=== PATIENT | female | born 2000 | race Caucasian/White ===

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

== ENCOUNTER → 2021-04-19 | Outpatient (CLI) | payer OTHER ==
--- NOTE | 2021-04-20 08:25 | USB ---
Reason for exam: clinical finding. History: Benign US breast aspiration single LT of the left breast, July 02, 2019. Took hormonal contraceptives for 3 years. Indicated problem(s): palpable abnormality in the left breast. Physical Findings: Nurse Summary: 0.25cm movable nodule 11-12 o'clock at scar, multiple areas (nurse dw). US Breast LT Technologist: Rosenda Jackson Left complete breast ultrasound includes all four quadrants, the retroareolar region and axilla. Finding demonstrates a 0.4 x 0.3 x 0.3cm cystic, benign lesion at 12 o'clock, a 0.4 x 0.4 x 0.3cm cystic lesion at 1 o'clock, a 0.4 x 0.4 x 0.3cm cystic lesion at 11 o'clock, corresponds to the palpable, benign and a 0.7 x 0.6 x 0.4cm cystic lesion at 11 o'clock, just deep to the skin surface suggesting sebaceous cyst or epidermal inclusion cysts. These results were verbally communicated with the patient and result sheet given to the patient on 04/19/21. ASSESSMENT: Benign, BI-RAD 2 RECOMMENDATION: Routine screening mammogram of both breasts at age 40. (unless clinical indication to start sooner) Manage on a clinical basis with regard to breast pain.
== END | disposition home or self-care (01) ==
LOC: RADUSWWP 15:01
PROVIDERS: ATTEND Family Medicine
DX: N63.20 Unspecified lump in the left breast, unspecified quadrant (principal)

== ENCOUNTER 2021-08-14 16:58 | Emergency (ER) | payer OTHER ==
[2021-08-14] MEDS ORDERED: SODIUM CHLORIDE 0.9% 2,000 ML IV STA (20:53)
[2021-08-14] MEDS ORDERED: ONDANSETRON 4 MG/2 ML VIAL IVP STA (20:53)
[2021-08-14] MEDS ORDERED: DIPHENOX-ATROP 2.5-0.025 MG 1 EACH TAB PO STA (20:53)
[2021-08-14 21:29] LABS: Basophils % (A) 0 %; Eosinophils # (A) 0.1 k/uL (0-0.7); Eosinophils % (A) 1 %; HCT 50.7 % (34.0-46.0); HGB 17.2 gm/dL (11.4-16.0); Lymphocytes # (A) 1.9 k/uL (1.0-4.8); Lymphocytes % (A) 11 %; MCH 28.7 pg (25.0-35.0); MCHC 33.9 g/dL (31.0-37.0); MCV 84.4 fL (80.0-100.0); Mean Platelet Volume 9.5; Monocytes # (A) 0.5 k/uL (0-1.0); Monocytes % (A) 3 %; Neutrophils # (A) 15.2 k/uL (1.3-7.7); Neutrophils % (A) 86 %; Platelet Count 378 k/uL (150-450); RDW 12.6 % (11.5-15.5); WBC 17.8 k/uL (4.0-11.0)
[2021-08-14 21:44] LABS: ALT 26 U/L (4-34); AST 27 U/L (14-36); African American GFR (CKD) >90 (>60 ml/min/1.73 sqM); Albumin 5.3 g/dL (3.5-5.0); Alkaline Phosphatase 74 U/L (38-126); Anion Gap 15 mmol/L; Blood Urea Nitrogen 13 mg/dL (7-17); Calcium 10.6 mg/dL (8.4-10.2); Carbon Dioxide 18 mmol/L (22-30); Chloride 110 mmol/L (98-107); Glucose 110 mg/dL (74-99); Lipase 32 U/L (23-300); Non-African American GFR(CKD) >90 (>60 ml/min/1.73 sqM); Sodium 143 mmol/L (137-145); Total Bilirubin 0.7 mg/dL (0.2-1.3); Total Protein 9.1 g/dL (6.3-8.2)
[2021-08-14 22:10] LABS: Potassium 4.9 mmol/L (3.5-5.1)
[2021-08-14 22:33] LABS: Appearance,Urine Cloudy (Clear); Bacteria,Urine Moderate /hpf; Bilirubin,Urine 1+ (Negative); Blood,Urine Negative (Negative); Color,Urine Yellow; Glucose,Urine (UA) Negative (Negative); Hyaline Casts,Urine 2 /lpf (0-2); Ketones,Urine 4+ (Negative); Leukocyte Esterase,Urine Small (Negative); Mucus,Urine Many /hpf; Nitrite,Urine Negative (Negative); Protein,Urine 2+ (Negative); RBC,Urine 2 /hpf (0-5); Specific Gravity,Urine 1.037 (1.001-1.035); Squamous Epithelial Cell,Urine 4 /hpf (0-4); WBC,Urine 3 /hpf (0-5)
[2021-08-14] MEDS ORDERED: ONDANSETRON 4 MG ODT STARTER PACK 2 TAB BTL PO STA (23:58)
[2021-08-14] MEDS ORDERED: DIPHENOX-ATROP STARTER PACK 8 TAB BTL PO STA (23:58)
[2021-08-15] MEDS ORDERED: cefTRIAXone IN SWFI 1,000 MG/10 ML SYRINGE IVP ONE
--- NOTE | 2021-08-15 00:02 | ED ---
General Adult HPI - General Chief complaint: Nausea/Vomiting/Diarrhea Stated complaint: vomiting/hot and cold Source: patient Mode of arrival: ambulatory Limitations: no limitations - History of Present Illness Initial comments: 21-year-old female presents emergency Department with reported nausea, vomiting and diarrhea 1 day. Denies any sick contacts with similar symptoms. Denies eating any tainted foods. Patient denies current concern for as she is on the Depakote shot. No abnormal vaginal bleeding or discharge. No fevers. Admits to chills. Denies changes in her urination to include dysuria, hematuria or diplopia voiding. Bowel movements are watery and brown in color. No black or bloody stools. She has had numerous episodes of vomiting which have caused her to have chest wall and abdominal wall pain. Denies shortness of breath. No Covid exposure. No recent abdominal surgeries. 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 - Related Data Home Medications Medication Instructions Recorded Confirmed Prazosin HCl 1 mg PO HS 09/25/17 08/14/21 Albuterol Sulfate [Proair Hfa] 2 puff INHALATION RT-Q4H PRN 08/14/21 08/14/21 Medroxyprogesterone Acetate 150 mg IM Q84D 08/14/21 08/14/21 [Depo-Provera] QUEtiapine XR [SEROquel XR] 150 mg PO HS 08/14/21 08/14/21 Previous Rx's Medication Instructions Recorded Cephalexin [Keflex] 500 mg PO BID 1 Days #14 cap 08/15/21 Allergies Allergy/AdvReac Type Severity Reaction Status Date / Time No Known Allergies Allergy Verified 08/14/21 23:00 Review of Systems ROS Statement: Those systems with pertinent positive or pertinent negative responses have been documented in the HPI. ROS Other: All systems not noted in ROS Statement are negative. Past Medical History Past Medical History: No Reported History Additional Past Medical History / Comment(s): " Anger issues" History of Any Multi-Drug Resistant Organisms: None Reported Additional Past Surgical History / Comment(s): oral surgery Past Anesthesia/Blood Transfusion Reactions: No Reported Reaction Past Psychological History: Anxiety, Depression, PTSD Smoking Status: Current some day smoker, Vaper Past Alcohol Use History: None Reported Past Drug Use History: Marijuana General Exam Limitations: no limitations Course Vital Signs 08/14/21 08/14/21 17:46 20:50 Temperature 97.9 F 98.9 F Pulse Rate 75 89 Respiratory 22 18 Rate Blood Pressure 136/90 132/87 O2 Sat by Pulse 99 99 Oximetry Medical Decision Making - Medical Decision Making Upon arrival patient is placed into room 18. Thorough history and physical exam was performed. IV was established. Patient given a dose of Lomotil and Zofran. Laboratory studies are conducted which demonstrated a leukocytosis of 17.8. UA demonstrates 4+ ketones, moderate bacteria. Patient given a dose of Rocephin. She is reevaluated reports to marked improvement in her symptoms. She is able tolerate by mouth intake at this time. Patient will be discharged home with starter packs for Lomotil and Zofran. Take the medications as directed. She needs follow-up with her primary care doctor in 2-4 days. If she has any new or worsening symptoms she needs to return to the emergency room. Patient agreed to treatment plan she was discharged home in stable condition - Lab Data Result diagrams: 08/14/21 21:10 08/14/21 21:10 Lab Results 08/14/21 08/14/21 08/14/21 Range/Units 21:10 21:10 21:10 WBC 17.8 H (4.0-11.0) k/uL RBC 6.00 H (3.80-5.40) m/uL Hgb 17.2 H (11.4-16.0) gm/dL Hct 50.7 H (34.0-46.0) % MCV 84.4 (80.0-100.0) fL MCH 28.7 (25.0-35.0) pg MCHC 33.9 (31.0-37.0) g/dL RDW 12.6 (11.5-15.5) % Plt Count 378 (150-450) k/uL MPV 9.5 Neutrophils % 86 % Lymphocytes % 11 % Monocytes % 3 % Eosinophils % 1 % Basophils % 0 % Neutrophils # 15.2 H (1.3-7.7) k/uL Lymphocytes # 1.9 (1.0-4.8) k/uL Monocytes # 0.5 (0-1.0) k/uL Eosinophils # 0.1 (0-0.7) k/uL Basophils # 0.0 (0-0.2) k/uL Sodium 143 (137-145) mmol/L Potassium 4.9 (3.5-5.1) mmol/L Chloride 110 H (98-107) mmol/L Carbon Dioxide 18 L (22-30) mmol/L Anion Gap 15 mmol/L BUN 13 (7-17) mg/dL Creatinine 0.63 (0.52-1.04) mg/dL Est GFR (CKD-EPI)AfAm >90 (>60 ml/min/1.73 sqM) Est GFR (CKD-EPI)NonAf >90 (>60 ml/min/1.73 sqM) Glucose 110 H (74-99) mg/dL Calcium 10.6 H (8.4-10.2) mg/dL Total Bilirubin 0.7 (0.2-1.3) mg/dL AST 27 (14-36) U/L ALT 26 (4-34) U/L Alkaline Phosphatase 74 (38-126) U/L Total Protein 9.1 H (6.3-8.2) g/dL Albumin 5.3 H (3.5-5.0) g/dL Lipase 32 (23-300) U/L Urine Color Yellow Urine Appearance Cloudy H (Clear) Urine pH 6.0 (5.0-8.0) Ur Specific [place] 1.037 H (1.001-1.035) Urine Protein 2+ H (Negative) Urine Glucose (UA) Negative (Negative) Urine Ketones 4+ H (Negative) Urine Blood Negative (Negative) Urine Nitrite Negative (Negative) Urine Bilirubin 1+ H (Negative) Urine Urobilinogen 3.0 (<2.0) mg/dL Ur Leukocyte Esterase Small H (Negative) Urine RBC 2 (0-5) /hpf Urine WBC 3 (0-5) /hpf Ur Squamous Epith Cells 4 (0-4) /hpf Urine Bacteria Moderate H (None) /hpf Hyaline Casts 2 (0-2) /lpf Urine Mucus Many H (None) /hpf Urine HCG, Qual (Not Detectd) 08/14/21 Range/Units 21:10 WBC (4.0-11.0) k/uL RBC (3.80-5.40) m/uL Hgb (11.4-16.0) gm/dL Hct (34.0-46.0) % MCV (80.0-100.0) fL MCH (25.0-35.0) pg MCHC (31.0-37.0) g/dL RDW (11.5-15.5) % Plt Count (150-450) k/uL MPV Neutrophils % % Lymphocytes % % Monocytes % % Eosinophils % % Basophils % % Neutrophils # (1.3-7.7) k/uL Lymphocytes # (1.0-4.8) k/uL Monocytes # (0-1.0) k/uL Eosinophils # (0-0.7) k/uL Basophils # (0-0.2) k/uL Sodium (137-145) mmol/L Potassium (3.5-5.1) mmol/L Chloride (98-107) mmol/L Carbon Dioxide (22-30) mmol/L Anion Gap mmol/L BUN (7-17) mg/dL Creatinine (0.52-1.04) mg/dL Est GFR (CKD-EPI)AfAm (>60 ml/min/1.73 sqM) Est GFR (CKD-EPI)NonAf (>60 ml/min/1.73 sqM) Glucose (74-99) mg/dL Calcium (8.4-10.2) mg/dL Total Bilirubin (0.2-1.3) mg/dL AST (14-36) U/L ALT (4-34) U/L Alkaline Phosphatase (38-126) U/L Total Protein (6.3-8.2) g/dL Albumin (3.5-5.0) g/dL Lipase (23-300) U/L Urine Color Urine Appearance (Clear) Urine pH (5.0-8.0) Ur Specific [place] (1.001-1.035) Urine Protein (Negative) Urine Glucose (UA) (Negative) Urine Ketones (Negative) Urine Blood (Negative) Urine Nitrite (Negative) Urine Bilirubin (Negative) Urine Urobilinogen (<2.0) mg/dL Ur Leukocyte Esterase (Negative) Urine RBC (0-5) /hpf Urine WBC (0-5) /hpf Ur Squamous Epith Cells (0-4) /hpf Urine Bacteria (None) /hpf Hyaline Casts (0-2) /lpf Urine Mucus (None) /hpf Urine HCG, Qual Not Detected (Not Detectd) Disposition Clinical Impression: UTI (urinary tract infection), Nausea and vomiting Disposition: HOME SELF-CARE Condition: Stable Instructions (If sedation given, give patient instructions): Acute Nausea and Vomiting (ED) Additional Instructions: Please take the Zofran and Lomotil as directed. Drink plenty of water. Return to the ED for any new or worsening symptoms. Prescriptions: Cephalexin [Keflex] 500 mg PO BID 1 Days #14 cap Is patient prescribed a controlled substance at d/c from ED?: No Referrals: Phyllis aLke MD [Primary Care Provider] - 1-2 days Time of Disposition: 00:01
[2021-08-15 00:42] VITALS: BP 132/87; PULSE 89; RESP 18; TEMP 98.9
== END 2021-08-15 00:45 | disposition home or self-care (01) ==
LOC: EC 16:58
DX: N39.0 Urinary tract infection, site not specified (principal); R11.2 Nausea with vomiting, unspecified; F43.10 Post-traumatic stress disorder, unspecified; F41.9 Anxiety disorder, unspecified; F32.A Depression, unspecified; F17.290 Nicotine dependence, other tobacco product, uncomplicated; F12.90 Cannabis use, unspecified, uncomplicated
CPT/HCPCS: 36415; 80053; 83690; 85025; 81001; 81025; 99284; 96374; 96375; J2405; J0696; S0119

== ENCOUNTER 2022-01-06 08:52 | Emergency (ER) | payer OTHER ==
[2022-01-06 09:14] VITALS: BP 121/77; PULSE 96; RESP 17; TEMP 97.9
--- NOTE | 2022-01-06 09:31 | ED ---
General Adult HPI - General Chief complaint: Skin/Abscess/Foreign Body Stated complaint: Right Leg Pain Time Seen by Provider: 01/06/22 09:15 Source: patient Mode of arrival: ambulatory Limitations: no limitations - History of Present Illness Initial comments: Dictation was produced using [employer] dictation software. please excuse any grammatical, word or spelling errors. Chief Complaint: 21-year-old female presents with right lower extremity infection History of Present Illness:-year-old female she has no significant comorbidities she noted a painful redness around her tattoo site. She recently got a tattoo approximately 2 weeks ago. She noted that there was no skin reaction where the tattoo was but anterior to it. Patient states been draining purulent fluid. She has been applying calamine lotion to it hasn't really been improving her symptoms. Denies any fever or constitutional symptoms. Patient is on oral contraceptive pills. She denies . The ROS documented in this emergency department record has been reviewed and confirmed by me. Those systems with pertinent positive or negative responses have been documented in the HPI. All other systems are other negative and/or noncontributory. PHYSICAL EXAM: General Impression: Alert and oriented x3, not in acute distress HEENT: Normocephalic atraumatic, extra-ocular movements intact, pupils equal and reactive to light bilaterally, mucous membranes moist. Cardiovascular: Heart regular rate and rhythm Chest: Able to complete full sentences, no retractions, no tachypnea Musculoskeletal: Pulses present and equal in all extremities, no peripheral edema Motor: no focal deficits noted Neurological: CN II-XII grossly intact, no focal motor or sensory deficits noted Right lower extremity: There does appear to be fresh tattoo over the lateral aspect of the distal right lower extremity. At his appear to be clean dry and intact. Anterior to the lower part of her tattoo there is a area of induration. Ultrasound was used and saw a soft tissue abscess that was small in size. Skin: Intact with no visualized rashes Psych: Normal affect and mood ED course: Patient is a 21-year-old female presents to the emergency department for soft tissue abscess of the right lower extremity just anterior to were her recent tattoo was placed. Patient has an identifiable abscess. Patient reports that her abscesses been draining. She recommended the patient to have at least needle aspiration to the site however she refuses and would prefer to just be on oral antibiotics to see if her symptoms resolve. Vital signs are within acceptable limits. Urine hCG is negative. Patient be discharged with prescription for Keflex and Bactrim. Advised to follow-up with primary care doctor. She is told that she would likely benefit from a incision and drainage of the area. - Related Data Home Medications Medication Instructions Recorded Confirmed Prazosin HCl 1 mg PO HS 09/25/17 08/14/21 Albuterol Sulfate [Proair Hfa] 2 puff INHALATION RT-Q4H PRN 08/14/21 08/14/21 Medroxyprogesterone Acetate 150 mg IM Q84D 08/14/21 08/14/21 [Depo-Provera] QUEtiapine XR [SEROquel XR] 150 mg PO HS 08/14/21 08/14/21 Previous Rx's Medication Instructions Recorded Cephalexin [Keflex] 500 mg PO BID 1 Days #14 cap 08/15/21 Cephalexin [Keflex] 500 mg PO Q6HR 5 Days #20 cap 01/06/22 Sulfamethox-Tmp 800-160Mg [Bactrim 1 tab PO Q12HR 5 Days #10 tab 01/06/22 DS 800-160 mg] Allergies Allergy/AdvReac Type Severity Reaction Status Date / Time No Known Allergies Allergy Verified 01/06/22 09:14 Review of Systems ROS Statement: Those systems with pertinent positive or pertinent negative responses have been documented in the HPI. ROS Other: All systems not noted in ROS Statement are negative. Past Medical History Past Medical History: No Reported History Additional Past Medical History / Comment(s): " Anger issues" History of Any Multi-Drug Resistant Organisms: None Reported Additional Past Surgical History / Comment(s): oral surgery Past Anesthesia/Blood Transfusion Reactions: No Reported Reaction Past Psychological History: Anxiety, Depression, PTSD Smoking Status: Current some day smoker, Vaper Past Alcohol Use History: None Reported Past Drug Use History: Marijuana General Exam Limitations: no limitations Course Vital Signs 01/06/22 09:11 Temperature 97.9 F Pulse Rate 96 Respiratory 17 Rate Blood Pressure 121/77 O2 Sat by Pulse 98 Oximetry Medical Decision Making - Lab Data Lab Results 01/06/22 Range/Units 09:50 Urine HCG, Qual Not Detected (Not Detectd) Disposition Clinical Impression: Soft tissue abscess Disposition: HOME SELF-CARE Instructions (If sedation given, give patient instructions): Abscess (ED) Prescriptions: Sulfamethox-Tmp 800-160Mg [Bactrim DS 800-160 mg] 1 tab PO Q12HR 5 Days #10 tab Cephalexin [Keflex] 500 mg PO Q6HR 5 Days #20 cap Is patient prescribed a controlled substance at d/c from ED?: No Referrals: Phyllis Lake MD [Primary Care Provider] - 1-2 days
== END 2022-01-06 10:21 | disposition home or self-care (01) ==
LOC: EC 08:52
DX: L02.415 Cutaneous abscess of right lower limb (principal); F41.9 Anxiety disorder, unspecified; F32.A Depression, unspecified; F43.10 Post-traumatic stress disorder, unspecified; F17.290 Nicotine dependence, other tobacco product, uncomplicated; F12.90 Cannabis use, unspecified, uncomplicated
CPT/HCPCS: 81025; 99283

== ENCOUNTER 2022-01-12 09:48 | Emergency (ER) | payer OTHER ==
[2022-01-12 09:58] VITALS: RESP 18; TEMP 98.4
[2022-01-12] MEDS ORDERED: SODIUM CHLORIDE 0.9% 1,000 ML IV ONE (10:36)
[2022-01-12] MEDS ORDERED: methylPREDNISolone SOD SUCCI 125 MG/2 ML VIAL IV STA (10:37)
[2022-01-12] MEDS ORDERED: LIDOCAINE 1% INJ 10MG/ML (5 ML VIAL-PF) SQ ONE (10:37)
[2022-01-12] MEDS ORDERED: diphenhydrAMINE 50 MG/ML 1 ML VIAL IVP STA (10:37)
--- NOTE | 2022-01-12 12:39 | ED ---
Allergic Reaction HPI - General Chief complaint: Allergic Reaction Stated complaint: Allergic Reaction/Rash Time Seen by Provider: 01/12/22 10:06 Source: patient Mode of arrival: ambulatory Limitations: no limitations - History of Present Illness Initial Comments: -year-old female with no past medical history presents emergency department for possible ALLERGIC reaction. She was seen on the where she had an abscess to her right calf. She is placed on Bactrim and Keflex and she has been taking it as directed. She refused incision and drainage of abscess at that time. She reports that she began having some drainage from the area which then scabbed over and stopped. Her last antibiotics was yesterday. She took her last dose she began having diffuse urticaria. Has not been taking any Benadryl for her symptoms yet. Denies any previous ALLERGIC reactions. Denies any new body products, shampoos, laundry detergent or foods. Denies any oral swelling, chest pain or shortness of breath. No concern for . 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, precipitating modifying factors - Related Data Home Medications Medication Instructions Recorded Confirmed Prazosin HCl 1 mg PO HS 09/25/17 01/12/22 Albuterol Sulfate [Proair Hfa] 2 puff INHALATION RT-Q4H PRN 08/14/21 01/12/22 QUEtiapine XR [SEROquel XR] 150 mg PO HS 08/14/21 01/12/22 Estarylla 1 tab PO HS 01/12/22 01/12/22 Previous Rx's Medication Instructions Recorded Ibuprofen [Motrin] 600 mg PO Q6HR PRN #10 tab 01/12/22 diphenhydrAMINE [Benadryl] 25 mg PO QID #28 capsule 01/12/22 predniSONE [Deltasone] 20 mg PO BID #10 tab 01/12/22 Allergies Allergy/AdvReac Type Severity Reaction Status Date / Time cephalexin [From Keflex] AdvReac Rash/Hives Verified 01/12/22 11:37 Review of Systems ROS Statement: Those systems with pertinent positive or pertinent negative responses have been documented in the HPI. ROS Other: All systems not noted in ROS Statement are negative. Past Medical History Past Medical History: No Reported History Additional Past Medical History / Comment(s): " Anger issues" History of Any Multi-Drug Resistant Organisms: None Reported Additional Past Surgical History / Comment(s): oral surgery Past Anesthesia/Blood Transfusion Reactions: No Reported Reaction Past Psychological History: Anxiety, Depression, PTSD Smoking Status: Current some day smoker Past Alcohol Use History: None Reported Past Drug Use History: Marijuana General Exam Limitations: no limitations General appearance: alert, in no apparent distress Head exam: Present: atraumatic, normocephalic, normal inspection Eye exam: Present: normal appearance, PERRL, EOMI. Absent: scleral icterus, conjunctival injection, periorbital swelling ENT exam: Present: normal exam, mucous membranes moist Neck exam: Present: normal inspection. Absent: tenderness, meningismus, lymphadenopathy Respiratory exam: Present: wheezes (left base). Absent: respiratory distress, rales, rhonchi, stridor Cardiovascular Exam: Present: normal rhythm, tachycardia, normal heart sounds. Absent: systolic murmur, diastolic murmur, rubs, gallop, clicks GI/Abdominal exam: Present: soft, normal bowel sounds. Absent: distended, tenderness, guarding, rebound, rigid Extremities exam: Present: normal inspection, full ROM, normal capillary refill. Absent: tenderness, pedal edema, joint swelling, calf tenderness Back exam: Present: normal inspection Neurological exam: Present: alert, oriented X3, CN II-XII intact Psychiatric exam: Present: normal affect, normal mood Skin exam: Present: warm, dry, intact, urticaria (chest, face, neck, bilateral arms, bilateral legs, back). Absent: rash Course Vital Signs 01/12/22 01/12/22 01/12/22 09:54 10:25 13:35 Temperature 98.4 F Pulse Rate 118 H 112 H 84 Respiratory 18 18 18 Rate Blood Pressure 119/64 143/81 173/72 O2 Sat by Pulse 98 98 98 Oximetry Procedures - Incision & Drainage Consent Obtained: verbal consent Indication: abscess Site: lower extremity Size (cm): 4 Anesthetic Used: lidocaine 1% Amount (mLs): 5 I&D Cleaning Method: Chloroprep Sterile Field Used?: Yes Scalpel Used: #11 Needle Aspiration Performed?: No Irrigation Performed?: No I&D Drainage Obtained: Pus Culture Obtained?: Yes Complications: bleeding Patient Tolerated Procedure: well, no complications Medical Decision Making - Medical Decision Making Upon arrival patient is placed into room 3. A thorough history and physical exam was performed. IV access is established. Patient is given 50 mg of Benadryl, 125 of Solu-Medrol and a liter bolus of normal saline. I did perform incision and drainage the patient's right calf abscess. Wound cultures are obtained. Patient does have improvement in her urticaria at this time. I did keep her incision and drainage site clean and dry. Is going to be placed on prednisone and Benadryl for the next 5 days. Take as directed. If she has persistent rash she needs to follow-up for possible ALLERGY testing. Return for any shortness of breath. Patient agreed that she was discharged home in stable condition Disposition Clinical Impression: Soft tissue abscess, Allergic reaction Disposition: HOME SELF-CARE Condition: Stable Instructions (If sedation given, give patient instructions): Abscess Incision and Drainage (ED), General Allergic Reaction (ED) Additional Instructions: Please take the steroids and Benadryl as directed. Return to the emergency room for any new or worsening symptoms. You may need further ALLERGY testing if your rash persists. Keep the area of your abscess clean and dry. Do not submerge the area in water Prescriptions: diphenhydrAMINE [Benadryl] 25 mg PO QID #28 capsule predniSONE [Deltasone] 20 mg PO BID #10 tab Ibuprofen [Motrin] 600 mg PO Q6HR PRN #10 tab PRN Reason: Pain Is patient prescribed a controlled substance at d/c from ED?: No Referrals: Phyllis Lake MD [Primary Care Provider] - 1-2 days Erika Medina MD [STAFF PHYSICIAN] - 1-2 days Time of Disposition: 12:40
[2022-01-12 13:52] VITALS: BP 173/72; PULSE 84
== END 2022-01-12 13:35 | disposition home or self-care (01) ==
LOC: EC 09:48
DX: L02.415 Cutaneous abscess of right lower limb (principal); L50.0 Allergic urticaria; T78.49XA Other allergy, initial encounter; F41.9 Anxiety disorder, unspecified; F32.A Depression, unspecified; F43.10 Post-traumatic stress disorder, unspecified; F12.90 Cannabis use, unspecified, uncomplicated; F17.200 Nicotine dependence, unspecified, uncomplicated; Z88.1 Allergy status to other antibiotic agents
CPT/HCPCS: 99282; 96374; 96375; 96361; 10060; J1200; J2930; J2001

== ENCOUNTER → 2024-02-28 | Outpatient (CLI) | payer OTHER ==
--- NOTE | 2024-02-28 16:28 | US ---
EXAMINATION TYPE: US abdomen limited DATE OF EXAM: 02/28/2024 COMPARISON: NONE CLINICAL INDICATION: Female, 23 years old with history of R10.33 PERIUMBILICAL PAIN; Assess for hernia at location of: umbilicus TECHNIQUE: Multiple grayscale and color Doppler ultrasound images of the umbilical region in the area of concern were obtained. Valsalva maneuver was performed. FINDINGS/IMPRESSION: At area of concern, near midline umbilicus, there are no abnormalities appreciated by ultrasound. No evidence for hernia, mass, or fluid collection.
== END | disposition home or self-care (01) ==
LOC: RADUSWWP 06:49
PROVIDERS: ATTEND Family Medicine
DX: R10.33 Periumbilical pain (principal)
CPT/HCPCS: 76705

== ENCOUNTER 2024-04-27 18:17 | Emergency (ER) | payer OTHER ==
[2024-04-27] MEDS ORDERED: ONDANSETRON 4 MG/2 ML VIAL ONE (19:09)
[2024-04-27] MEDS ORDERED: SODIUM CHLORIDE 0.9% 1,000 ML BAG ONE (19:20)
[2024-06-07 11:55] LABS: N. gonorrhoeae,PCR Negative (Negative)
[2024-06-07 11:56] LABS: C. trachomatis,PCR Negative (Negative)
== END 2024-04-27 22:58 | disposition home or self-care (01) ==
LOC: EC 18:17
DX: N39.0 Urinary tract infection, site not specified (principal)
CPT/HCPCS: 87491; 87591; 87086; 99284; 96374; 96361; J2405

== ENCOUNTER 2024-06-19 01:51 | Emergency (ER) | payer OTHER ==
[2024-06-19 02:00] VITALS: RESP 19; TEMP 98.1
[2024-06-19] MEDS: SODIUM CHLORIDE 0.9% 2,000 ML IV STA (02:42)
[2024-06-19] MEDS: KETOROLAC 15 MG/ML 1 ML VIAL IVP STA (02:47)
[2024-06-19] MEDS: METOCLOPRAMIDE 5 MG/ML 2 ML VIAL IVP STA (02:47)
[2024-06-19 02:56] LABS: Basophils # (A) 0.1 k/uL (0-0.2); Basophils % (A) 0 %; Eosinophils # (A) 0.1 k/uL (0-0.7); Eosinophils % (A) 0 %; HCT 45.6 % (34.0-46.0); Lymphocytes # (A) 2.5 k/uL (1.0-4.8); Lymphocytes % (A) 16 %; MCH 28.2 pg (25.0-35.0); MCHC 32.9 g/dL (31.0-37.0); MCV 85.7 fL (80.0-100.0); Mean Platelet Volume 10.1; Monocytes # (A) 0.9 k/uL (0-1.0); Monocytes % (A) 6 %; Neutrophils # (A) 11.4 k/uL (1.3-7.7); Neutrophils % (A) 75 %; Platelet Count 355 k/uL (150-450); RBC 5.32 m/uL (3.80-5.40); RDW 13.5 % (11.5-15.5); WBC 15.1 k/uL (3.8-10.6)
[2024-06-19 03:07] LABS: ALT 47 U/L (4-34); AST 35 U/L (14-36); African American GFR (CKD) >90 (>60 ml/min/1.73 sqM); Albumin 5.2 g/dL (3.5-5.0); Alkaline Phosphatase 69 U/L (38-126); Amylase 55 U/L (30-110); Anion Gap 13 mmol/L; Blood Urea Nitrogen 9 mg/dL (7-17); Calcium 10.3 mg/dL (8.4-10.2); Carbon Dioxide 21 mmol/L (22-30); Chloride 104 mmol/L (98-107); Glucose 110 mg/dL (74-99); Lipase 36 U/L (23-300); Non-African American GFR(CKD) >90 (>60 ml/min/1.73 sqM); Potassium 3.7 mmol/L (3.5-5.1); Sodium 138 mmol/L (137-145); Total Bilirubin 0.8 mg/dL (0.2-1.3); Total Protein 8.2 g/dL (6.3-8.2)
[2024-06-19 03:28] LABS: HCG,Qualitative Serum Not Detected
--- NOTE | 2024-06-19 03:46 | ED ---
General Adult HPI <Gricel Mead - Last Filed: 06/19/24 07:41> - General Source: patient Limitations: no limitations <Bro Mcghee - Last Filed: 06/19/24 19:44> - General Chief complaint: Nausea/Vomiting/Diarrhea Stated complaint: NVD abd pain Time Seen by Provider: 06/19/24 02:07 - History of Present Illness Initial comments: 23-year-old female presenting with chief complaint of nausea and vomiting. Patient states she has had issues with increased nausea and vomiting for the last 2 months. However the last 2 days symptoms have been worsening. She went to urgent care earlier today and was given Benadryl and Zofran. She states that later on she still could not tolerate oral intake so she came here for fluids. She does have some upper abdominal discomfort that feels primarily from retching. No diarrhea. No fevers. No cough congestion or sore throat. No chest pain or difficulty breathing. No urinary symptoms. (Bro Mcghee) - Related Data Home Medications Medication Instructions Recorded Confirmed Prazosin HCl 1 mg PO HS 09/25/17 01/12/22 Albuterol Sulfate [Proair Hfa] 2 puff INHALATION RT-Q4H PRN 08/14/21 01/12/22 QUEtiapine XR [SEROquel XR] 150 mg PO HS 08/14/21 01/12/22 Estarylla 1 tab PO HS 01/12/22 01/12/22 Previous Rx's Medication Instructions Recorded Ibuprofen [Motrin] 600 mg PO Q6HR PRN #10 tab 01/12/22 diphenhydrAMINE [Benadryl] 25 mg PO QID #28 capsule 01/12/22 predniSONE [Deltasone] 20 mg PO BID #10 tab 01/12/22 Metoclopramide [Reglan] 5 mg PO Q8HR PRN #15 tab 06/19/24 Allergies Allergy/AdvReac Type Severity Reaction Status Date / Time cephalexin [From Keflex] AdvReac Rash/Hives Verified 01/12/22 11:37 sulfamethoxazole AdvReac Rash/Hives Verified 06/19/24 01:53 [From Bactrim] trimethoprim [From Bactrim] AdvReac Rash/Hives Verified 06/19/24 01:53 Review of Systems ROS Other: All systems not noted in ROS Statement are negative. <Gricel Mead - Last Filed: 06/19/24 07:41> ROS Other: All systems not noted in ROS Statement are negative. <Bro Mcghee - Last Filed: 06/19/24 19:44> ROS Statement: Those systems with pertinent positive or pertinent negative responses have been documented in the HPI. Past Medical History Past Medical History: No Reported History Additional Past Medical History / Comment(s): " Anger issues" History of Any Multi-Drug Resistant Organisms: None Reported Additional Past Surgical History / Comment(s): oral surgery Past Anesthesia/Blood Transfusion Reactions: No Reported Reaction Past Psychological History: Anxiety, Depression, PTSD Smoking Status: Current every day smoker Past Alcohol Use History: Rare Past Drug Use History: Marijuana <Bro Mcghee - Last Filed: 06/19/24 19:44> General Exam Limitations: no limitations General appearance: alert, in no apparent distress Head exam: Present: atraumatic, normocephalic, normal inspection Eye exam: Present: normal appearance, EOMI Neck exam: Present: normal inspection. Absent: meningismus Respiratory exam: Present: normal lung sounds bilaterally. Absent: respiratory distress, wheezes, rales, rhonchi, stridor Cardiovascular Exam: Present: regular rate, normal rhythm, normal heart sounds. Absent: systolic murmur, diastolic murmur, rubs, gallop, clicks GI/Abdominal exam: Present: soft, tenderness (diffuse discomfort with no localized tenderness). Absent: distended, guarding, rebound, rigid Neurological exam: Present: alert, oriented X3 Psychiatric exam: Present: normal affect, normal mood Skin exam: Present: warm, dry <Bro Mcghee - Last Filed: 06/19/24 19:44> Course Vital Signs 06/19/24 06/19/24 01:53 05:58 Temperature 98.1 F 98.1 F Pulse Rate 68 72 Respiratory 19 19 Rate Blood Pressure 141/95 136/85 O2 Sat by Pulse 98 98 Oximetry Medical Decision Making - Lab Data Result diagrams: 06/19/24 02:37 06/19/24 02:37 <Gricel Mead - Last Filed: 06/19/24 07:41> - Lab Data Result diagrams: 06/19/24 02:37 06/19/24 02:37 <Tyree Mcgheee - Last Filed: 06/19/24 19:44> - Medical Decision Making Was patient admitted / discharged? Hospital course, mention meds given and route, prescriptions, significant lab abnormalities, going to OR and other p ertinent info. @ -[hospital course] patient signed out to myself pending urinalysis.Urinalysis showed cloudy urine, increased specific gravity specific cavity 1.037, trace glucose 4+ ketones, 1+ bilirubin, trace leukocyte esterase, 16 red-white blood cells, 6 squamous cells. Updated patient to these findings. She was already prescribed Macrobid outpatient earlier today. She will continue to take this. Will discharge home with Reglan. We discussed and symptoms warranting return to the emergency department. Patient was able to tolerate p.o. intake. Undiagnosed new problem with uncertain prognosis? @ -[No] Drug Therapy requiring intensive monitoring for toxicity (Heparin, Nitro, Insulin, Cardizem)? @ -[No] Were any procedures done? @ -[No] Diagnosis/symptom? @ -[default] Acute, or Chronic, or Acute on Chronic? @ -[default] Uncomplicated (without systemic symptoms) or Complicated (systemic symptoms)? @ -[default] Side effects of treatment? @ -[No] Exacerbation, Progression, or Severe Exacerbation? @ -[No] Poses a threat to life or bodily function? How? (Chest pain, [place], [place], pneumonia, PE, COPD, DKA, ARF, appy, cholecystitis, CVA, Diverticulitis, Homicidal, Suicidal, threat to staff... and all critical care pts) @ -[No] (,Gricel) Was pt. sent in by a medical professional or institution (, PA, BUCKLE ASSEMBLER, urgent care, hospital, or prison...) When possible be specific @ -No Did you speak to anyone other than the patient for history (EMS, parent, family, police, friend...)? What history was obtained from this source @ -No Did you review nursing and triage notes (agree or disagree)? Why? @ -I reviewed and agree with nursing and triage notes Were old charts reviewed (outside hosp., previous admission, EMS record, old EKG, old radiological studies, urgent care reports/EKG's, prison records)? Report findings @ -No old charts were reviewed Differential Diagnosis (chest pain, altered mental status, abdominal pain women, abdominal pain men, vaginal bleeding, weakness, fever, dyspnea, syncope, headache, dizziness, GI bleed, back pain, seizure, CVA, palpatations, mental health, musculoskeletal)? @ -Differential includes gastroenteritis, kidney stone, UTI, cyclic vomiting syndrome, cannabinoid induced hyperemesis syndrome, this is not an all-inclusive list EKG interpreted by me (3pts min.). @ -As above X-rays interpreted by me (1pt min.). @ -None done CT interpreted by me (1pt min.). @ -None done U/S interpreted by me (1pt. min.). @ -None done What testing was considered but not performed or refused? (CT, X-rays, U/S, labs)? Why? @ -None What meds were considered but not given or refused? Why? @ -None Did you discuss the management of the patient with other professionals (professionals i.e. , PA, BUCKLE ASSEMBLER, lab, RT, psych nurse, director social service, bag sewer, teacher, airfield engineer officer, employment evaluator/case manager)? Give summary @ -No Was smoking cessation discussed for >3mins.? @ -No Was critical care preformed (if so, how long)? @ -No Were there social determinants of health that impacted care today? How? (Homelessness, low income, unemployed, alcoholism, drug addiction, transportation, low edu. Level, literacy, decrease access to med. care, halfway, rehab)? @ -No Was there de-escalation of care discussed even if they declined (Discuss DNR or withdrawal of care, Hospice)? DNR status @ -No What co-morbidities impacted this encounter? (DM, HTN, Smoking, COPD, CAD, Cancer, CVA, ARF, Chemo, Hep., AIDS, mental health diagnosis, sleep apnea, morbid obesity)? @ -None Was patient admitted / discharged? Hospital course, mention meds given and route, prescriptions, significant lab abnormalities, going to OR and other pertinent info. @ -23-year-old female presenting chief complaint of nausea and vomiting. History and physical examination are conducted. WBC 15.1, likely reactive. Negative hCG. Patient was given Toradol Reglan and fluids. On reassessment she is eating crackers. Awaiting UA, patient signed out to my attending Dr. Mead ([facility]) - Lab Data Lab Results 06/19/24 06/19/24 06/19/24 Range/Units 02:37 02:37 04:12 WBC 15.1 H (3.8-10.6) k/uL RBC 5.32 (3.80-5.40) m/uL Hgb 15.0 (11.4-16.0) gm/dL Hct 45.6 (34.0-46.0) % MCV 85.7 (80.0-100.0) fL MCH 28.2 (25.0-35.0) pg MCHC 32.9 (31.0-37.0) g/dL RDW 13.5 (11.5-15.5) % Plt Count 355 (150-450) k/uL MPV 10.1 Neutrophils % 75 % Lymphocytes % 16 % Monocytes % 6 % Eosinophils % 0 % Basophils % 0 % Neutrophils # 11.4 H (1.3-7.7) k/uL Lymphocytes # 2.5 (1.0-4.8) k/uL Monocytes # 0.9 (0-1.0) k/uL Eosinophils # 0.1 (0-0.7) k/uL Basophils # 0.1 (0-0.2) k/uL Sodium 138 (137-145) mmol/L Potassium 3.7 (3.5-5.1) mmol/L Chloride 104 (98-107) mmol/L Carbon Dioxide 21 L (22-30) mmol/L Anion Gap 13 mmol/L BUN 9 (7-17) mg/dL Creatinine 0.75 (0.52-1.04) mg/dL Est GFR (CKD-EPI)AfAm >90 (>60 ml/min/1.73 sqM) Est GFR (CKD-EPI)NonAf >90 (>60 ml/min/1.73 sqM) Glucose 110 H (74-99) mg/dL Calcium 10.3 H (8.4-10.2) mg/dL Total Bilirubin 0.8 (0.2-1.3) mg/dL AST 35 (14-36) U/L ALT 47 H (4-34) U/L Alkaline Phosphatase 69 (38-126) U/L Total Protein 8.2 (6.3-8.2) g/dL Albumin 5.2 H (3.5-5.0) g/dL Amylase 55 (30-110) U/L Lipase 36 (23-300) U/L HCG, Qual Not Detected Urine Color Yellow Urine Appearance Cloudy H (Clear) Urine pH 6.0 (5.0-8.0) Ur Specific [place] 1.037 H (1.001-1.035) Urine Protein 2+ H (Negative) Urine Glucose (UA) Trace H (Negative) Urine Ketones 4+ H (Negative) Urine Blood Negative (Negative) Urine Nitrite Negative (Negative) Urine Bilirubin 1+ H (Negative) Urine Urobilinogen 4.0 (<2.0) mg/dL Ur Leukocyte Esterase Trace H (Negative) Urine RBC 2 (0-5) /hpf Urine WBC 16 H (0-5) /hpf Ur Squamous Epith Cells 6 H (0-4) /hpf Amorphous Sediment Rare H (None) /hpf Hyaline Casts 95 H (0-2) /lpf Urine Mucus Many H (None) /hpf Disposition Is patient prescribed a controlled substance at d/c from ED?: No <Gricel Mead - Last Filed: 06/19/24 07:41> <Bro Mcghee - Last Filed: 06/19/24 19:44> Clinical Impression: Dehydration, Nausea and vomiting Disposition: HOME SELF-CARE Condition: Good Instructions (If sedation given, give patient instructions): Acute Nausea and Vomiting (ED) Additional Instructions: Every disease is a spectrum and a small chance still exists that a serious condition could develop, for this reason, please monitor yourself closely for new, changing or worsening symptoms, symptoms that persist beyond 48 hours, fever, inability to tolerate/keep down fluids or your medications, inability to follow up with outpatient providers as instructed and should you experience these symptoms or should you have any further concerns for your wellbeing please return to the ED or call 911 immediately. PLEASE call your primary care physician as soon as possible to arrange / discuss plan for followup appointment. Appointment in the next 1-3 days is strongly encouraged if possible. PLEASE let us know here before you leave if there is anything further we can do to be of any assistance. Take care and feel Better! Prescriptions: Metoclopramide [Reglan] 5 mg PO Q8HR PRN #15 tab PRN Reason: Nausea Referrals: Sunilkumar,Mini, MD [Primary Care Provider] - 1-2 days
[2024-06-19 05:15] LABS: Amorphous Sediment,Urine Rare /hpf; Appearance,Urine Cloudy (Clear); Bilirubin,Urine 1+ (Negative); Blood,Urine Negative (Negative); Color,Urine Yellow; Glucose,Urine (UA) Trace (Negative); Hyaline Casts,Urine 95 /lpf (0-2); Ketones,Urine 4+ (Negative); Leukocyte Esterase,Urine Trace (Negative); Mucus,Urine Many /hpf; Nitrite,Urine Negative (Negative); Protein,Urine 2+ (Negative); RBC,Urine 2 /hpf (0-5); Specific Gravity,Urine 1.037 (1.001-1.035); Squamous Epithelial Cell,Urine 6 /hpf (0-4); WBC,Urine 16 /hpf (0-5)
[2024-06-19 05:59] VITALS: BP 136/85; PULSE 72
== END 2024-06-19 06:08 | disposition home or self-care (01) ==
LOC: EC 01:51
DX: E86.0 Dehydration (principal); F17.200 Nicotine dependence, unspecified, uncomplicated; Z88.1 Allergy status to other antibiotic agents; Z88.2 Allergy status to sulfonamides
CPT/HCPCS: 36415; 80053; 82150; 83690; 85025; 81001; 84703; 99284; 96374; 96375; 96361; J2765; J1885

== ENCOUNTER → 2024-12-13 | Outpatient (CLI) | payer OTHER ==
--- NOTE | 2024-12-13 14:40 | USB ---
Reason for Exam: Clinical finding. Patient History: Patient used Hormonal Contraceptives for 3 years. 07/02/2019, Benign Cyst Aspiration on the left side. Technique: Method: Whole Breast Handheld. Findings: The whole breast of the left breast, the axilla of the left breast and the retroareolar of the left breast were scanned. A complete US of all four quadrants of the breast and retro-areolar region were reviewed. No solid or cystic masses are identified.. There is a small cyst at the 12:00 position measuring 6 mm. Finding is stable. Recommend management on a clinical basis. Overall Assessment: Benign, BI-RAD 2 Management: Screening Mammogram of both breasts at age 41. A clinical breast exam by your physician is recommended on an annual basis and results should be correlated with mammographic findings. This exam should not preclude additional follow-up of suspicious palpable abnormalities. Results were given to the patient verbally at the time of exam. [facility], , 12/13/2024 2:37 PM. Electronically signed and approved by: Henry Noel M.D. [facility]
--- NOTE | 2024-12-13 15:04 | US ---
EXAMINATION TYPE: US transvaginal DATE OF EXAM: 12/13/2024 COMPARISON: NONE CLINICAL INDICATION: Female, 24 years old with history of N64.4 Mastodynia N92.6 IRREGULAR MENSTRUATI ON, UNS; irregular menses TECHNIQUE: Transvaginal (TV). Doppler imaging: Not performed. FINDINGS: EXAM MEASUREMENTS: Uterus: 7.1 x 2.9 x 4.4 cm Endometrial Stripe: .7 cm Right Ovary: 3.3 x 2.3 x 2.5 cm 1. Uterus: Anteverted wnl 2. Endometrium: wnl 3. Right Ovary: wnl 4. Left Ovary: Obscured by overlying bowel gas 5. Bilateral Adnexa: wnl 6. Posterior cul-de-sac: wnl Anteverted uterus without focal lesion. Demonstrate homogeneous echotexture. Endometrium appears with in normal limits. Right ovary is unremarkable with color flow demonstrated. The left ovary is not vis ualized due to overlying bowel gas. No free fluid. IMPRESSION: 1. No ultrasound evidence for acute process. 2. Endometrium is normal thickness. 3. Left ovary is obscured by overlying bowel gas. [facility], , 12/13/2024 3:02 PM
== END | disposition home or self-care (01) ==
LOC: RADUSWWP 14:08
PROVIDERS: ATTEND Family Medicine
DX: N64.4 Mastodynia (principal); N92.6 Irregular menstruation, unspecified; N85.4 Malposition of uterus; N60.02 Solitary cyst of left breast; Z92.0 Personal history of contraception
CPT/HCPCS: 76830